=== PATIENT | female | born 2000 | race Caucasian/White ===

== ENCOUNTER 2020-01-15 12:37 | Inpatient (IN) ==
[~2020-01-15 12:37] MED LIST: Famotidine 20 MG/2 ML VIAL IVP PRN; Metoclopramide 10 MG/2 ML VIAL IVP PRN; Naloxone 0.4 MG/ML INJ IVP PRN; Ondansetron 4 MG/2 ML VIAL IVP PRN
[2020-01-15] MEDS ORDERED: Ringers Solution, Lactated 1,000 ML IVC SCH (12:45)
[2020-01-15 14:11] LABS: Amphetamine Screen,Urine Negative ng/mL (Cutoff=1000); Barbiturate Screen,Urine Negative ng/mL (Cutoff=200); Benzodiazepines Screen,Urine Negative ng/mL (Cutoff=200); Cannabinoid Screen,Urine Negative ng/mL (Cutoff = 50); Cocaine Screen,Urine Negative ng/mL (Cutoff= 300); Opiate Screen,Urine Negative ng/mL (Cutoff=300); Phencyclidine Screen,Urine Negative ng/mL (Cutoff=25)
[2020-01-15 14:11] LABS: Basophils % 0.2 %; Hematocrit 32.8 % (35.3-44.9); Hemoglobin 10.1 g/dL (11.5-15.4); Immature Granulocytes % 0.5 % (0-4); Lymphocytes # 1.6 K/mcL (0.6-4.6); Lymphocytes % 16.3 %; Mean Corpuscular HGB Conc 30.8 g/dL (31.6-35.5); Mean Corpuscular Hemoglobin 27.9 pg (28.0-33.3); Mean Corpuscular Volume 90.6 fL (83.0-100.0); Mean Platelet Volume 10.5 fL (9.4-12.4); Monocytes # 0.4 K/mcL (0.0-1.3); Neutrophils # 7.6 K/mcL (1.6-8.9); Platelet Count 224 K/mcL (140-400); Red Blood Count 3.62 M/mcL (3.82-4.97); Red Cell Distribution Width 15.2 % (11.5-14.5); White Blood Count 9.7 K/mcL (4.3-11.1)
[2020-01-15] MEDS ORDERED: Oxytocin 20 units/ LR 1000 mL 20 UNIT/1,000 ML BAG IVC SCH (21:00)
[2020-01-15] MEDS: *HR* FentaNYL (PF) 100 MCG/2 ML VIAL IVP PRN (23:02)
[2020-01-16] MEDS: *HR* FentaNYL (PF) 100 MCG/2 ML VIAL IVP PRN (04:05)
[2020-01-16] MEDS ORDERED: EPHEDrine 50 MG/ML VIAL IVP PRN (04:50)
[2020-01-16] MEDS ORDERED: Ropivacaine/PF 0.2% 20 ML VIAL EP ONE (04:50)
[2020-01-16] MEDS ORDERED: *HR* FentaNYL (PF) 100 MCG/2 ML VIAL EP ONE (04:50)
[2020-01-16] MEDS ORDERED: *HR* FentaNYL (PF) 100 MCG/2 ML VIAL ONE (04:58)
[2020-01-16] MEDS ORDERED: Ropivacaine/PF 0.2% 20 ML VIAL ONE (04:58)
[2020-01-16] MEDS ORDERED: Acetaminophen 325 MG TABLET PO ONE (10:17)
[2020-01-16] MEDS: Epidural Premix (fent/bupiv) 110 ML EP SCH ×2 (12:36→17:40)
[2020-01-16] MEDS ORDERED: *HR* Ropivacaine/PF 0.5% 20 ML VIAL ONE ×2 (16:02→19:47)
[2020-01-16] MEDS ORDERED: Lidocaine 1% 20 ML MDV INFILT ONE (21:22)
[2020-01-17] MEDS ORDERED: Oxytocin 20 units/ LR 1000 mL 20 UNIT/1,000 ML BAG IVC SCH (02:31)
[2020-01-17] MEDS ORDERED: Benzocaine/Menthol 56 GM AEROSOL SPRAY TP PRN (02:31)
[2020-01-17] MEDS ORDERED: Acetaminophen 325 MG TABLET PO PRN (02:31)
[2020-01-17] MEDS ORDERED: Measles/Mumps/Rubella Vacc 0.5 ML VIAL SQ PRN (02:31)
[2020-01-17] MEDS ORDERED: Oxytocin 20 units/ LR 1000 mL 20 UNIT/1,000 ML BAG IVC ONE (02:31)
[2020-01-17] MEDS ORDERED: Rho Immune Globulin 1,500 UNIT SYRINGE IM PRN (02:31)
[2020-01-17] MEDS: Ibuprofen 600 MG TABLET PO PRN ×3 (04:29→23:20)
[2020-01-17] MEDS: Prenatal Vit/FA 1 EACH TABLET PO SCH (07:46)
[2020-01-18] MEDS: Ibuprofen 600 MG TABLET PO PRN (08:02)
[2020-01-18] MEDS: Prenatal Vit/FA 1 EACH TABLET PO SCH (08:02)
[2020-01-18 08:35] VITALS: BP 110/74
== END 2020-01-18 13:05 | disposition home or self-care (01) | DRG 807 ==
LOC: 1NENULAB → 1NENUOBS 01-17 02:29
PROVIDERS: ADMIT Registered Nurse; ATTEND Registered Nurse